=== PATIENT | female | born 1975 | race Caucasian/White ===

== ENCOUNTER → 2020-05-09 | Outpatient (CLI) | payer OTHER ==
--- NOTE | 2020-05-09 11:22 | RAD ---
3 views the right knee without comparison for chronic right knee pain. FINDINGS: There is no fracture, dislocation, or acute osseous abnormality identified. Joints and soft tissues are grossly unremarkable. No suprapatellar joint effusion. IMPRESSION: 1. No acute osseous abnormality. Electronically signed by: Rainer Manrique MD (05/09/2020 11:19 AM) [id number]
== END ==
LOC: DXRAD 09:30
PROVIDERS: ATTEND Physician Assistant
DX: M25.561 Pain in right knee (principal)
CPT/HCPCS: 73562

== ENCOUNTER → 2020-06-17 | Outpatient (CLI) | payer OTHER ==
--- NOTE | 2020-06-17 09:19 | RAD ---
XR KNEE _3 VIEWS_LT 06/17/2020 8:01 AM INDICATION: Left knee pain COMPARISON: None available. TECHNIQUE: 3 views of the left knee are provided. FINDINGS/ IMPRESSION: There is no acute fracture or dislocation. Joint spaces are maintained. Bone mineralization is within normal limits. Regional soft tissues are within normal limits. There is no soft tissue gas or osseou s erosion. No radiopaque foreign body. Electronically signed by: Jacki Marie MD (06/17/2020 9:17 AM) [facility]
== END ==
LOC: DXRAD 07:56
PROVIDERS: ATTEND Physician Assistant
DX: M25.562 Pain in left knee (principal)
CPT/HCPCS: 73562